=== PATIENT | male | born 1955 | race Caucasian/White ===

== ENCOUNTER → 2018-04-18 17:14 | Outpatient (CLI) | payer SELFPAY ==
--- NOTE | 2018-04-18 17:21 | DI.RAD.S_ITS ---
PROCEDURE: XR CHEST 2V INDICATIONS: DYSPNEA, PARESTHESIA LT ARM TECHNIQUE: 2 views of the chest were acquired. COMPARISON: [facility], , CHEST 2 VIEW, 08/09/2017, 10:12. FINDINGS: Surgical changes and devices: None. Lungs and pleura: No pleural effusions or pneumothorax. Lungs are clear. Mediastinum: Mediastinal contours are normal. Heart size is normal. Bones and chest wall: No suspicious bony abnormalities. Soft tissues appear unremarkable. IMPRESSION: No acute cardiopulmonary findings. Dictated by: Marley Ramesh M.D. on 04/18/2018 at 16:34 Approved by: Marley Ramesh M.D. on 04/18/2018 at 16:35
== END ==
PROVIDERS: Family Provider Family Medicine Geriatric Medicine; PCP Family Medicine Geriatric Medicine; Visit Provider Family Medicine Geriatric Medicine
DX: R06.09 Other forms of dyspnea (principal); R20.2 Paresthesia of skin
CPT/HCPCS: 71046